=== PATIENT | female | born 1995 | race Caucasian/White ===

== ENCOUNTER 2016-05-30 08:23 | Emergency (ER) | payer OTHER ==
--- NOTE | 2016-05-30 08:49 | UC ---
Skin Complaint HPI - HPI Summary HPI Summary: HAD UMBILICAL PIERCING FEW WEEKS AGO , NOTED A SMALL BOIL AT THE SITE, MINIMAL TENDERNESS, NO REDNESS, MILD DISCHARGE NO FEVER, NO CHILLS - History of Current Complaint Time Seen by Provider: 05/30/16 08:29 Stated Complaint: SKIN COMPLAINT Hx Obtained From: Patient Hx Last Menstrual Period: 01/25/13 Onset/Duration: Gradual Onset, Lasting Days - 7, Still Present Timing: Constant Onset Severity: Mild Current Severity: Mild Location: Other - UMBILICAL AREA Character: Swelling, Pain, Redness, Raised Aggravating: Touch Alleviating: Nothing Associated Signs & Symptoms: Positive: Negative - Allergy/Home Medications Allergies/Adverse Reactions: Allergies Allergy/AdvReac Type Severity Reaction Status Date / Time No Known Allergies Allergy Verified 01/29/13 20:14 Review of Systems Constitutional: Negative Eyes: Negative ENT: Negative Respiratory: Negative Cardiovascular: Negative All Other Systems Reviewed And Are Negative: Yes PMH/Surg Hx/FS Hx/Imm Hx Endocrine History Of: Denies: Diabetes, Thyroid Disease Cardiovascular History Of: Denies: Cardiac Disorders, Hypertension Respiratory History Of: Reports: Asthma - Surgical History Surgical History: Yes Surgery Procedure, Year, and Place: tubes - Family History Known Family History: Negative: Diabetes - Social History Substance Use Type: None - Immunization History Vaccination Up to Date: Yes Physical Exam Triage Information Reviewed: Yes Appearance: Well-Appearing, No Pain Distress, Well-Nourished Vital Signs Reviewed: Yes Eye Exam: Normal Eyes: Positive: Conjunctiva Clear ENT: Positive: Normal ENT inspection, Hearing grossly normal, Pharynx normal Neck exam: Normal Neck: Positive: Supple, Nontender, No Lymphadenopathy Respiratory: Positive: Chest non-tender, Lungs clear, Normal breath sounds Cardiovascular: Positive: RRR, No Murmur, Pulses Normal, Brisk Capillary Refill Skin: Positive: Other - + SMALL ABSCESS AT THE UMBILICAL PIERCING , MILD TENDERNESS, MILD ERYTHEMA, NO SWELLING Course/Dx - Diagnoses Provider Diagnoses: UMBILICAL ABSCESS Discharge - Discharge Plan Condition: Stable Disposition: HOME Prescriptions: Cephalexin CAP* [Keflex CAP*] 500 mg PO TID #30 cap Patient Education Materials: Abscess (ED) Referrals: Non Staff,Doctor [Primary Care Provider] - 7 Days
[2016-05-30 08:55] VITALS: BP 112/79
== END 2016-05-30 08:55 | disposition home or self-care (01) ==
LOC: UCCORT 08:23
DX: L02.216 Cutaneous abscess of umbilicus (principal)
CPT/HCPCS: 99202; G0463